=== PATIENT | female | born 1955 | race Caucasian/White ===

== ENCOUNTER 2019-06-08 16:42 | Outpatient (CLI) | payer OTHER, SELFPAY ==
--- NOTE | 2019-06-08 | XR_ITS ---
WS: [id number] CERVICAL SPINE 5 VIEWS HISTORY: CERVICAL RADICULOPATHY COMPARISON: 06/30/2018 TECHNIQUE: AP, oblique and lateral radiographs. Lateral in neutral, flexion and extension. Mild S-shaped curvature cervical spine similar to the prior study. Lateral masses of C1 and C2 are al igned. Odontoid is intact. Straightening and slight reversal normal cervical lordosis. Taking into co nsideration the osteophytes and degenerative rotation of the vertebral bodies no instability is evide nt. Endplate osteophytes are small from C3 through C7. XR/XR cervical spine 4-5V [id number] IMPRESSION: 1. Straightening reversal normal cervical lordosis. 2. No instability. 3. Multilevel mild spondylosis.
== END 2019-06-08 16:43 | disposition home or self-care (01) ==
LOC: RADOUTREAD 06-11 08:03
PROVIDERS: Family Provider Family Medicine; Visit Provider Family Medicine
DX: M54.12 Radiculopathy, cervical region (principal); M47.892 Other spondylosis, cervical region

== ENCOUNTER 2019-08-09 12:33 | Outpatient (CLI) | payer OTHER, SELFPAY ==
--- NOTE | 2019-08-09 12:46 | CT_ITS ---
WS: [id number] CT ANGIOGRAM CEREBRAL AND CAROTID ARTERIES HISTORY: RT ARM WEAKNESS TECHNIQUE: CT angiogram is performed of the carotid and cerebral arteries. During arterial injection imaging is obtained from the skull vertex to the aortic arch in 1.25 mm imaging. Coronal and sagittal reformats are submitted. Additional multi planar reformats of the carotid and cerebral arteries are submitted, MIP imaging also reviewed. NASCET criteria utilized. All CT scans at [facility] use at least one of these dose optimization techniques: automated exposure control; mA and/or kV ad justment per patient size (includes targeted exams where dose is matched to clinical indication); or iterative reconstruction. CONTRAST: Omnipaque 350; 95 mL IV. DLP: 2350.26 mGy.cm COMPARISON: None available. Carotid Angiogram: Right carotid: Common carotid artery: Arises normally from the innominate artery. No significant plaque or stenosis. Internal carotid artery: Mild narrowing involving the origin of the RIGHT ICA. Stenosis calculated at 32%. Visually the stenosis appears closer to 50%. External carotid artery: Patent. Left carotid: Common carotid artery: Arises from the base of the innominate. No stenosis. Internal carotid artery: No plaque or stenosis. External carotid artery: Patent. Right vertebral artery: Unremarkable. Left vertebral artery: Unremarkable. Arises normally from the subclavian artery. Subclavian arteries: LEFT subclavian is normal. Proximal RIGHT subclavian is normal. Distal to the pr oximal subclavian overlying contrast mixing from the subclavian artery. Upper thorax: Normal. Thyroid gland: LEFT thyroid nodule measures 2.8 x 2.1 cm and extends substernal. Osseous structures: Mild osteophytic ridging of the cervical spine. No focal disc herniations or sign ificant stenosis is identified. Very mild narrowing of the RIGHT foramen at C5-6. CEREBRAL ANGIOGRAM: Intracranial vertebral arteries: Normal with no significant atherosclerosis. Basilar artery: No significant stenosis or occlusion. No aneurysm. Intracranial Internal carotid arteries: Patent with mild atherosclerotic plaque. Middle cerebral arteries: Normal. Anterior cerebral arteries and ACOM: Normal. Posterior cerebral arteries and PCOM's: Posterior cerebral arteries are normal. Small caliber LEFT P- comm. RIGHT is dominant. Dural venous sinuses are normally enhancing. Mastoid air cells: Normal. Paranasal sinuses: Mucoperiosteal thickening LEFT maxillary sinus. Otherwise clear. Calvarium: Normal. CT/CT angio headneck* [id number] IMPRESSION: 1. Focal stenosis of 50% involving the origin of the RIGHT ICA. 2. Mild atherosclerosis intracranial carotid arteries. 3. Bovine arch. 4. Substernal LEFT thyroid nodule measures 2.8 x 2.1 cm. Probably thyroid goit er. Consider follow-up ultrasound evaluation.
[2019-08-09 13:36] LABS: Blood Urea Nitrogen 20 mg/dL (8-23); Glomerular Filtration Rate 56.2 mL/min (90-130)
[2019-08-09] MEDS: iohexol 350 mg/mL 100 mL Btl IV (14:01)
== END 2019-08-09 12:34 | disposition home or self-care (01) ==
LOC: RAD 12:40
PROVIDERS: Family Provider Family Medicine; PCP Family Medicine; Visit Provider Family Medicine
DX: R29.898 Other symptoms and signs involving the musculoskeletal system (principal); E04.1 Nontoxic single thyroid nodule; I65.21 Occlusion and stenosis of right carotid artery; R20.0 Anesthesia of skin
CPT/HCPCS: 36415; 70496; 70498; 82565; 84520

== ENCOUNTER 2019-08-14 12:43 | Outpatient (CLI) | payer OTHER, SELFPAY ==
--- NOTE | 2019-08-14 | MR_ITS ---
WS: [id number] MRI HEAD WITH CONTRAST TECHNIQUE: Sagittal T1, T2 axial, T2 axial FLAIR, axial susceptibility weighted imaging, axial diffus ion weighted images, and coronal T2 images were obtained. Pre and post-T1 axial and post T1 coronal i mages. ADC and FSPGR images. CLINICAL INFORMATION: RT ARM WEAKNESS COMPARISON: MRI 017 FINDINGS: No evidence of restricted diffusion to suggest acute ischemia. Ventricular system and basal cisterns are patent. Moderate patchy supratentorial white matter changes most consistent with a small vessel d isease in a patient this age. This is not significantly changed since 2017. Moderate parenchymal volu me loss. Normal posterior fossa. Normal vascular flow voids at the skull base. No extra-axial fluid collections. No evidence of mass or mass effect. Paranasal sinuses and mastoid a ir cells are well aerated. No hemosiderin on susceptibly weighted images. No abnormal intracranial enhancement. Normal optic chiasm and pituitary infundibulum. Normal visualiz ed dural venous sinuses. MR/MR head wo/w con [id number] IMPRESSION: 1. No evidence of restricted diffusion to suggest acute ischemia. 2. Moderate supratentorial white matter changes most consistent with small ves angie disease in a patient this age. This is not significantly changed. Moderate parenchymal volume loss. 3. No hemosiderin on the susceptibly weighted images. 4. No abnormal intracranial enhancement. 5. No other significant findings.
--- NOTE | 2019-08-14 | USCV_ITS ---
Nancy James Age: 64 Gender: F : 1955 Exam Date: 08/14/2019 13:29 Ordering Phys: Rory Kinney MD Technologist: Zeferino Dinh [place] [facility] [place]: BP: 120 / 80 HR: 64 Rhythm: Sinus Technical Quality: Adequate MEASUREMENTS (Male / Female) Normal Values 2D ECHO LV Diastolic Diameter PLAX 3.3 cm 4.2 - 5.9 / 3.9 - 5.3 cm LV Systolic Diameter PLAX 2.1 cm IVS Diastolic Thickness 0.8 cm 0.6 - 1.0 / 0.6 - 0.9 cm IVS Systolic Thickness 1.5 cm LVPW Diastolic Thickness 1.0 cm 0.6 - 1.0 / 0.6 - 0.9 cm LVPW Systolic Thickness 1.2 cm LVOT Diameter 2.1 cm LV Ejection Fraction 2D Teich 67.8 % LV Ejection Fraction MOD 2C 67.7 % LV Ejection Fraction 2C AL 68.3 % LA Diameter 3.5 cm LA Width 2.9 cm LA Height 5.2 cm RA Width 3.4 cm RA Height 4.1 cm M-MODE LV Diastolic Diameter MM 4.6 cm 4.2 - 5.9 / 3.9 - 5.3 cm LV Systolic Diameter MM 3.1 cm LV Ejection Fraction MM Teich 60.2 % IVS Diastolic Thickness MM 1.0 cm 0.6 - 1.0 / 0.6 - 0.9 cm IVS Systolic Thickness MM 1.4 cm LVPW Diastolic Thickness MM 1.1 cm 0.6 - 1.0 / 0.6 - 0.9 cm LVPW Systolic Thickness MM 1.9 cm RV Diastolic Diameter MM 1.6 cm Aortic Annulus Diameter 2.8 cm LA Ao Ratio MM 1.2 MV E Point Septal Separation 1.1 cm DOPPLER AV Peak Velocity 239.0 cm/s LVOT Peak Velocity 120.0 cm/s AV Area Cont Eq vti 1.7 cm squared AV Area Cont Eq pk 1.8 cm squared MV Area PHT 5.0 cm squared Mitral E to A Ratio 0.8 MV E' Velocity 10.0 cm/s Mitral E to MV E' Ratio 8.7 Mitral E to LV E' Lateral Ratio 8.5 Mitral E to LV E' Septal Ratio 9.0 TR Peak Velocity 158.0 cm/s TR Peak Gradient 10.0 mmHg TV Peak E Velocity 77.0 cm/s Right Atrial Pressure 3.0 mmHg Pulmonary Artery Systolic Pressu 13.0 mmHg FINDINGS Left Ventricle Normal left ventricular size and systolic function, EF 58 %. No regional wall motion abnormalities.Grade I/IV diastolic dysfunction (abnormal relaxation filling pattern), normal to mildly elevated filling pressures. Right Ventricle Normal right ventricular size and systolic function. Right Atrium The right atrium is normal in size. Left Atrium The left atrium is normal in size. Mitral Valve Structurally normal mitral valve without significant stenosis or prolapse. There is no mitral regurgitation. Aortic Valve Thickened aortic valve. Aortic valve sclerosis. Tricuspid Valve Structurally normal tricuspid valve without significant stenosis or regurgitation. Pulmonary artery systolic pressure is normal. Pulmonic Valve Structurally normal pulmonic valve without significant stenosis. There is no pulmonic regurgitation. Pericardium Normal pericardium without effusion. Aorta Normal aortic annulus size. CONCLUSIONS Normal left ventricular size and systolic function, EF 58 %. No regional wall motion abnormalities.Grade I/IV diastolic dysfunction (abnormal relaxation filling pattern), normal to mildly elevated filling pressures. Features of aortic valve sclerosis There is no pericardial effusion. There are no intracardiac masses. There are no prior echocardiogram studies to compare. Dr Karyn Ontiveros MD FACC (Electronically Signed) Final Date: 14 August 2019 17:20 S
== END 2019-08-14 12:44 | disposition home or self-care (01) ==
PROVIDERS: Family Provider Family Medicine; PCP Family Medicine; Visit Provider Family Medicine
DX: I65.29 Occlusion and stenosis of unspecified carotid artery (principal); R53.1 Weakness
CPT/HCPCS: 70553; A9579; C8929

== ENCOUNTER 2019-10-24 13:08 | Outpatient (CLI) | payer OTHER, SELFPAY ==
--- NOTE | 2019-10-24 13:11 | MR_ITS ---
WS: [id number] MRI CERVICAL SPINE NONCONTRAST TECHNIQUE: Sagittal T1, T2 and STIR imaging. Axial T2, gradient, and fiesta imaging. CLINICAL INFORMATION: CERVICAL RADICULOPATHY AT C7 COMPARISON: MRI cervical August 27, 2015 FINDINGS: Straightening of the normal cervical lordosis. Cord signal is normal. No high-grade central canal kathleen rowing. Alignment is unchanged since 2016 C2-C3: Normal. C3-C4: Mild disc bulging and osteophytic ridging. Moderate left and no significant right foraminal na rrowing. Mild facet arthropathy. Spinal canal is patent. C4-C5: Disc osteophyte complex with endplate ridging. Mild central canal stenosis. Moderate left and no significant right foraminal narrowing. Mild facet arthropathy. C5-C6: Right pericentral disc osteophyte complex. Mild central canal stenosis. Mild right and no sign ificant left foraminal narrowing. Mild facet arthropathy. C6-C7: Tiny central disc protrusion. Mild central canal stenosis. Mild left and no significant right foraminal narrowing. C7-T1: Mild bilateral foraminal narrowing. Spinal canal is patent. Visualized brain stem structures: Normal. Prevertebral soft tissues: Normal. MR/MR cervical spin wo con* [id number] IMPRESSION: 1. Straightening of the normal cervical lordosis. No high-grade central canal narrowing. Cord signal is normal. 2. Mild central canal stenosis due to disc osteophyte complexes at C3-C4, C4-C 5 and C5-C6. 3. Mild to moderate bony foraminal narrowing worse at left C3-C4, left C4-C5, left C6-7. 4. Overall no significant interval changes since August 27, 2015
--- NOTE | 2019-10-24 13:13 | MR_ITS ---
WS: [id number] MRI RIGHT SHOULDER NONCONTRAST TECHNIQUE: Sagittal T2, coronal T1, T2 and proton density imaging. Axial gradient PDE imaging. CLINICAL INFORMATION: RIGHT ROTATOR CUFF SYNDROME FINDINGS: Moderate hypertrophic changes AC joint with mild edema. Mild downsloping of the acromion. Chronic thi nning of the supraspinatus with mild tendinopathy. Infraspinatus is normal in appearance. Normal sammie s minor and subscapularis. No full-thickness rotator cuff tears. Normal biceps tendon in the bicipital groove. Distal subscapularis tendon is normal in appearance. Mi ld degenerative fraying of the glenoid labrum which appears grossly intact. T2 hyperintensity with th ickening and partial intrasubstance tear involving the intra-articular biceps tendon. Biceps labral a nchor appears intact. MR/MR shoulder RT wo con* [id number] IMPRESSION: 1. Moderate hypertrophic changes AC joint with mild edema. 2. Rotator cuff is intact. Mild tendinopathy in the distal supraspinatus. 3. Edema with partial intrasubstance tear involving the intra-articular biceps tendon. Distal biceps tendon is intact in the bicipital groove. 4. Biceps labral anchor appears intact.
== END 2019-10-24 13:09 | disposition home or self-care (01) ==
LOC: RADWPI 13:10
PROVIDERS: Family Provider Family Medicine; PCP Family Medicine; Visit Provider Family Medicine
DX: M75.101 Unspecified rotator cuff tear or rupture of right shoulder, not specified as traumatic (principal); M54.12 Radiculopathy, cervical region; R60.9 Edema, unspecified
CPT/HCPCS: 72141; 73221

== ENCOUNTER 2022-08-16 06:00 | Outpatient (RCR) | payer MEDICARE, SELFPAY | END 2022-09-05 23:59 | disposition home or self-care (01) | LOC: SPT 06:00 | PROVIDERS: Visit Provider Family Medicine | DX: H81.11 Benign paroxysmal vertigo, right ear (principal) | CPT/HCPCS: 95992; 97161 ==

== ENCOUNTER 2023-03-15 07:12 | Emergency (ER) | payer MEDICARE, SELFPAY ==
[2023-03-15] VITALS (31 sets, daily range): BP systolic 130–178; BP diastolic 58–79; PULSE 49–65; RESP 2–20; TEMP 36.4; O2SAT 94–98; BMI 25.3
--- NOTE | 2023-03-15 07:22 | ECG_ITS ---
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 Measurements Intervals [place] Rate: 57 P: 65 UT: 126 QRS: 26 QRSD: 104 T: 13 QT: 413 QTc: 405 Interpretive Statements SINUS BRADYCARDIA WITH OCCASIONAL VENTRICULAR PREMATURE COMPLEXES No previous ECG available for comparison Electronically Signed On 03-15-2023 10:43:54 ASSISTANT GENERAL MANAGER by Wilner Downing M.D. [id number] f
--- NOTE | 2023-03-15 07:39 | W.ED.CHESTPA ---
HPI - Chest Pain General: Chief Complaint: Chest Pain Stated Complaint: high bp, dizzy Time Seen by Provider: 03/15/23 07:20 Source: patient Mode of arrival: ambulatory History of Present Illness: 67-year-old female presents emergency room complaining of chest discomfort and dizziness. She awoke from sleep had a sensation she was falling states she felt dizzy blood pressure was 157/97 she took her regular morning medications amlodipine and Lopressor. Her blood pressure still mildly elevated on arrival here she does not have any chest discomfort but she is having dizziness. No known history of coronary artery disease she is diabetic and hypertensive. She thinks she may have had a stress test sometime nearly 40 years ago. MD complaint: chest pain Onset (ago): hour(s) Timing of current episode: episodic Prior episodes: Yes Onset: during rest Pain location: substernal Pain radiation: none Quality: aching and heaviness Relieving factors: nothing Exacerbating factors: nothing Associated symptoms: Deny abdominal pain, diaphoresis, dyspnea, fever(s), leg edema, nausea, palpitations, sense of impending doom, syncope or vomiting Treatment prior to arrival: none Review of Systems Const: Denies: fever(s), chills or diaphoresis Card: Reports: chest pain; Denies: palpitations, irregular heart rhythm, edema or syncope Resp: Denies: dyspnea GI: Denies: abdominal pain, nausea or vomiting : Denies: dysuria, urinary frequency or urinary urgency Musc: Denies: neck pain or back pain Skin/Breast: Denies: rash Neuro: Reports: dizziness [facility] ED PFSH: Social History (Updated 03/15/23 @ 07:40 by Arash Gonzalez DO) Smoking and tobacco/nicotine status: current every day tobacco/nicotine user cigarettes Physical Exam Const: COMMON NORMALS: no acute distress GENERAL APPEARANCE: cooperative and comfortable ORIENTATION/CONSCIOUSNESS: Yes awake, Yes oriented to person, Yes oriented to place and Yes oriented to time HENMT: COMMON NORMALS: normocephalic, atraumatic and hearing grossly normal bilaterally HEAD & SCALP: normocephalic and atraumatic Resp: COMMON NORMALS: normal respiratory effort, No retractions, No use of accessory muscles and clear to auscultation bilaterally AUSCULTATION: clear to auscultation bilaterally Cardio: COMMON NORMALS: regular rate, regular rhythm and No murmurs present (Cardio) RATE: regular rate RHYTHM: regular rhythm GI: COMMON NORMALS: Soft to palpation and No hepatosplenomegaly present AUSCULTATION: Yes normoactive bowel sounds PALPATION: Yes Soft to palpation, No Tenderness to palpation present (GI), No Guarding due to palpation present (GI) and Yes No hepatosplenomegaly present Extremity: COMMON NORMALS: normal to inspection, capillary refill normal, no clubbing, cyanosis or edema, no calf tenderness and no pedal edema Neuro: SENSORIUM/ORIENTATION: Yes oriented to person, Yes oriented to place and Yes oriented to time Skin: COMMON NORMALS: no rashes or lesions noted GENERAL SKIN EXAM: no rashes or lesions noted Course Vital Signs: Vital signs: Vital Signs Temperature 97.6 F 03/15/23 07:18 Pulse Rate 60 03/15/23 11:05 Respiratory Rate 16 03/15/23 11:05 Blood Pressure 133/71 03/15/23 11:05 Pulse Oximetry 96 03/15/23 11:05 Oxygen Delivery Me thod Room Air 03/15/23 09:21 MDM - Chest Pain Medical Decision Making Patient blood pressure elevated some mild chest discomfort cardiac enzymes negative. She has had some dizziness movement head continues Dramamine for this. We will set her up for an outpatient Lexiscan sestamibi stress test. Recheck for any worsening problems. . Reviewing chart she has seen her primary care doctor and been referred for vestibular rehab in the past the dizziness has been an ongoing issue. Medical Records I reviewed the patient's medical records. Lab Data I reviewed the patient's lab results. 03/15/23 07:30 03/15/23 08:03 Laboratory Results WBC 7.91 10^3/uL (3.29-11.43) 03/15/23 07:30 RBC 5.35 10^6/uL (3.85-5.65) 03/15/23 07:30 Hgb 16.30 g/dL (11.27-16.99) 03/15/23 07:30 Hct 49.1 % (36-47) H 03/15/23 07:30 MCV 91.8 fl (85-98) 03/15/23 07:30 MCH 30.5 pg (27-33) 03/15/23 07:30 MCHC 33.2 g/dL (30-55) 03/15/23 07:30 RDW 12.6 % (12.1-15.1) 03/15/23 07:30 Plt Count 266 10^3/cmm (157-399) 03/15/23 07:30 MPV 11.7 fL (7.4-10.4) H 03/15/23 07:30 Neut % (Auto) 54.6 % 03/15/23 07:30 Lymph % (Auto) 33.0 % 03/15/23 07:30 Teller % (Auto) 7.6 % 03/15/23 07:30 Eos % (Auto) 3.4 % 03/15/23 07:30 Baso % (Auto) 1.1 % 03/15/23 07:30 Neut # (Auto) 4.32 10^3/uL (1.8-7.7) 03/15/23 07:30 Lymph # (Auto) 2.6 10^3/uL (0.8-4.8) 03/15/23 07:30 Teller # (Auto) 0.6 10^3/uL (0.2-0.9) 03/15/23 07:30 Eos # (Auto) 0.3 10^3/uL (0.0-0.8) 03/15/23 07:30 Baso # (Auto) 0.1 10^3/uL (0.0-0.1) 03/15/23 07:30 Nucleated RBC % (auto) 0 % 03/15/23 07:30 Nucleated RBCs # 0.0 /100WBC 03/15/23 07:30 Sodium 138 mmol/L (136-145) 03/15/23 08:03 Potassium 4.0 mmol/L (3.5-5.1) 03/15/23 08:03 Chloride 103 mmol/L (98-107) 03/15/23 08:03 Carbon Dioxide 23 mmol/L (22-29) 03/15/23 08:03 Anion Gap 16.0 (5-19) 03/15/23 08:03 BUN 17 mg/dL (8-23) 03/15/23 08:03 Creatinine 0.9 mg/dL (0.5-0.9) 03/15/23 08:03 GFR Calculation 62.8 mL/min (90-130) L 03/15/23 08:03 Glucose 132 mg/dL (65-115) H 03/15/23 08:03 Calculated Osmolality 289 mOsm/kg (285-295) 03/15/23 08:03 Calcium 9.3 mg/dL (8.5-10.5) 03/15/23 08:03 Total Bilirubin 0.2 mg/dL (0.15-1.2) 03/15/23 08:03 AST 13 U/L (0-32) 03/15/23 08:03 ALT 15 U/L (0-33) 03/15/23 08:03 Alkaline Phosphatase 32 U/L (35-105) L 03/15/23 08:03 Troponin T Baseline < 6 ng/L (0-10) 03/15/23 08:03 Troponin T 120 Minute 6.0 ng/L (0-10) 03/15/23 10:00 Delta Troponin T 0.43618 ABS# (0-10) 03/15/23 10:00 Total Protein 7.0 g/dL (6.6-8.7) 03/15/23 08:03 Albumin 4.2 g/dL (3.5-5.2) 03/15/23 08:03 Globulin 2.8 g/dL (1.3-4.6) 03/15/23 08:03 All radiology interpretation(s) finalized by discharge Discharge Plan Discharge Patient Disposition: Home Clinical Impression: Atypical chest pain, GERD (gastroesophageal reflux disease) Prescriptions: New Protonix 40 mg tablet,delayed release (DR/EC) 40 mg PO DAILY 28 Days Qty: 30 0RF No Action fenofibrate nanocrystallized [Tricor] 145 mg tablet 145 mg PO QAM triamterene-hydrochlorothiazid 37.5-25 mg tablet 1 tab PO QAM amlodipine 5 mg tablet 5 mg PO QAM aspirin 81 mg tablet,delayed release (DR/EC) 81 mg PO QAM zolpidem [Ambien] 5 mg tablet 5 mg PO BEDTIME PRN (Reason: Sleep) potassium chloride 10 mEq tablet extended release 30 meq PO QAM Vitamin C 500 mg Tablet 500 mg PO QAM albuterol sulfate 90 mcg/actuation Hfa Aerosol Inhaler 2 puff INHALATION QID PRN (Reason: Shortness Of Breath) metoprolol tartrate 25 mg tablet 25 mg PO QAM Vitamin D3 25 mcg (1,000 unit) Tablet 1,000 unit PO QAM [place] Blood Sugar Support 1 tab PO QAM Colon Cleanse 1 tab PO QAM Discharge Orders: Discharge ED (Routine); Ordered 03/15/23 Ordered By: Arash Gonzalez Discharge Diet: Usual diet Discharge Activity: Increase activity as tolerated Patient Instructions: Opioid Safety, Pain Management Activity Restrictions/Additional Instructions: Thank you for choosing [facility] for your healthcare needs today. Please realize this is an emergency room and that we are providing you with a medical screening exam and this may not be complete and all inclusive of all the testing and or work up that you may need to determine your ailment or severity of your illness. It is very important that you follow up as instructed or that you return to the Emergency Department should you have concerns or if your condition changes or worsens in any way. Suspect your symptoms may have been related to reflux. We do recommend that you have a Lexiscan sestamibi stress test to rule out cardiac as a source of your symptoms. Coding Level of Care Code ED Maintenance Mechanic [employer] for Eliazar Hardin
[2023-03-15 07:40] LABS: Basophils # 0.1 10^3/uL (0.0-0.1); Basophils % 1.1 %; Eosinophils # 0.3 10^3/uL (0.0-0.8); Eosinophils % 3.4 %; Hematocrit 49.1 % (36-47); Lymphocytes # 2.6 10^3/uL (0.8-4.8); Mean Corpuscular HGB Conc 33.2 g/dL (30-55); Mean Corpuscular Hemoglobin 30.5 pg (27-33); Mean Corpuscular Volume 91.8 fl (85-98); Mean Platelet Volume 11.7 fL (7.4-10.4); Monocytes # 0.6 10^3/uL (0.2-0.9); Monocytes % 7.6 %; Neutrophils # 4.32 10^3/uL (1.8-7.7); Neutrophils % 54.6 %; Nucleated Red Blood Cells % 0 %; Platelet Count 266 10^3/cmm (157-399); Red Blood Count 5.35 10^6/uL (3.85-5.65); Red Cell Distribution Width 12.6 % (12.1-15.1); White Blood Count 7.91 10^3/uL (3.29-11.43)
[2023-03-15 08:32] LABS: Alanine Aminotransferase 15 U/L (0-33); Albumin Level 4.2 g/dL (3.5-5.2); Alkaline Phosphatase 32 U/L (35-105); Aspartate Amino Transferase 13 U/L (0-32); Blood Urea Nitrogen 17 mg/dL (8-23); Calcium 9.3 mg/dL (8.5-10.5); Carbon Dioxide 23 mmol/L (22-29); Chloride 103 mmol/L (98-107); Globulin 2.8 g/dL (1.3-4.6); Glomerular Filtration Rate 62.8 mL/min (90-130); Glucose 132 mg/dL (65-115); Osmolality Calculated 289 mOsm/kg (285-295); Sodium 138 mmol/L (136-145); Total Bilirubin 0.2 mg/dL (0.15-1.2)
[2023-03-15 08:35] LABS: Troponin(5th) Baseline < 6 ng/L (0-10)
--- NOTE | 2023-03-15 09:24 | ECG_ITS ---
[facility] Test Date: 2023-03-15 Pat Name: Nancy James Department: Room: Gender: Female Polyethylene Combiner: : 1955 Requested By: Arash Hernandez Order Number: [id number] Benjy MD: Wilner Downing M.D. Measurements Intervals [place] Rate: 47 P: 68 CA: 129 QRS: 40 QRSD: 105 T: 22 QT: 439 QTc: 392 Interpretive Statements SINUS BRADYCARDIA No previous ECG available for comparison Electronically Signed On 03-15-2023 10:45:14 MACHINE PRECISION ETCHER by Wilner Downing M.D. [id number]
--- NOTE | 2023-03-15 09:53 | XR_ITS ---
WS: [id number] Portable AP upright chest, 03/15/2023 Clinical Data: dyspnea/cough Comparison: 2 view chest, 04/18/2020 Findings: No nodules, masses or effusions are seen. The heart is normal. The pulmonary vascularity is not increased. No pneumonia or pneumothorax is seen. The aortic arch and descending thoracic aorta s how mild tortuosity. There is a slight dextroscoliosis of the lower thoracic spine. Monitor leads are on the chest wall. Impression: Atherosclerosis.
[2023-03-15 10:28] LABS: Troponin 5 2HR Delta 0.00001 ABS# (0-10)
== END 2023-03-15 11:10 | disposition home or self-care (01) ==
PROVIDERS: Emergency Provider Family Medicine; PCP Family Medicine
DX: R07.89 Other chest pain (principal); K21.9 Gastro-esophageal reflux disease without esophagitis; Z79.82 Long term (current) use of aspirin; F17.210 Nicotine dependence, cigarettes, uncomplicated
CPT/HCPCS: 36415; 71045; 80053; 84484; 85025; 93005; 99285

== ENCOUNTER 2023-03-17 03:15 | Emergency (ER) | payer MEDICARE, SELFPAY ==
[2023-03-17 03:15] VITALS: BP 177/89; PULSE 70; RESP 12; TEMP 36.5; O2SAT 98; BMI 25.0
--- NOTE | 2023-03-17 03:32 | ECG_ITS ---
[facility] Test Date: 2023-03-17 Pat Name: Nancy James Department: Room: Gender: Female Field Application Engineer: : 1955 Requested By: Stanley Starks Order Number: [id number] Benjy MD: Wilner Downing M.D. Measurements Intervals [place] Rate: 74 P: 71 IA: 116 QRS: 62 QRSD: 99 T: 37 QT: 377 QTc: 420 Interpretive Statements SINUS RHYTHM WITH SHORT IA INTERVAL NONSPECIFIC T-WAVE ABNORMALITY Compared to ECG 03/15/2023 09:24:54 Short IA interval now present T-wave abnormality now present Sinus bradycardia no longer present Electronically Signed On 03-17-2023 11:12:30 APPRENTICE by Wilner Downing M.D. [id number]
[2023-03-17 03:37] LABS: Basophils # 0.1 10^3/uL (0.0-0.1); Basophils % 1.2 %; Eosinophils # 0.3 10^3/uL (0.0-0.8); Eosinophils % 2.5 %; Hematocrit 48.1 % (36-47); Lymphocytes # 4.7 10^3/uL (0.8-4.8); Lymphocytes % 39.1 %; Mean Corpuscular HGB Conc 32.8 g/dL (30-55); Mean Corpuscular Hemoglobin 30.4 pg (27-33); Mean Corpuscular Volume 92.5 fl (85-98); Mean Platelet Volume 12.6 fL (7.4-10.4); Monocytes # 0.9 10^3/uL (0.2-0.9); Monocytes % 7.6 %; Neutrophils # 5.87 10^3/uL (1.8-7.7); Neutrophils % 49.3 %; Nucleated Red Blood Cells % 0 %; Platelet Count 260 10^3/cmm (157-399); Red Cell Distribution Width 12.3 % (12.1-15.1)
--- NOTE | 2023-03-17 03:39 | ED_ITS ---
HPI - General Adult General: Chief complaint: General Medical Stated complaint: hypertension Time Seen by Provider: 03/17/23 03:18 History of Present Illness: Patient presents to the ER with complaints of hypertension. Patient also has dizziness but this is chronic for her. Patient states she has taken her medicine and has not missed any doses. Patient presented to the ER a couple days ago with similar complaints and was worked up in a cardiac fashion. Review of Systems General: Reports: 10 or more systems reviewed and unremarkable except in HPI and below PFSH ED PFSH: Social History Smoking and tobacco/nicotine status: current every day tobacco/nicotine user cigarettes Physical Exam Const: COMMON NORMALS: no acute distress, average body habitus, patient oriented x3, no limitations, healthy appearing, alert and well nourished HENMT: COMMON NORMALS: normocephalic, atraumatic, hearing grossly normal bilaterally, external ears normal, Normal external nose present, moist oral mucous membranes and oropharynx normal HEAD & SCALP: normocephalic and atraumatic NOSE: Normal external nose present EXTERNAL EAR: Yes external ears normal Neck/C-Spine: COMMON NORMALS: no JVD Chest: COMMONS NORMALS: normal inspection of the chest and normal palpation of entire chest wall Resp: COMMON NORMALS: normal respiratory effort, No retractions, No use of accessory muscles and clear to auscultation bilaterally AUSCULTATION: clear to auscultation bilaterally Cardio: COMMON NORMALS: no JVD, regular rate, regular rhythm, S1 normal heart sound present, S2 normal heart sound present, No gallops present (Cardio), No clicks present (Cardio), No murmurs present (Cardio) and No rub (Cardio) RATE: regular rate RHYTHM: regular rhythm HEART SOUNDS: S1 normal heart sound present and S2 normal heart sound present GI: COMMON NORMALS: Normal to inspection, nondistended, normoactive bowel sounds present, Soft to palpation, non-tender, No hepatosplenomegaly present and no masses PALPATION: Yes Soft to palpation and Yes No hepatosplenomegaly present Neuro: COMMON NORMALS: patient oriented x3 SENSORIUM/ORIENTATION: Yes alert Course Vital Signs: Vital signs: Vital Signs Temperature 97.7 F 03/17/23 03:15 Pulse Rate 67 03/17/23 05:40 Respiratory Rate 18 03/17/23 05:40 Blood Pressure 154/69 03/17/23 05:40 Pulse Oximetry 95 03/17/23 05:40 Oxygen Delivery Me thod Room Air 03/17/23 03:15 MDM - General Adult Medical Decision Making labs Differential Diagnosis Hypertension Medical Records I reviewed the patient's medical records. Lab Data I reviewed the patient's lab results. 03/17/23 03:17 03/17/23 04:01 Laboratory Results WBC 11.90 10^3/uL (3.29-11.43) H 03/17/23 03:17 RBC 5.20 10^6/uL (3.85-5.65) 03/17/23 03:17 Hgb 15.80 g/dL (11.27-16.99) 03/17/23 03:17 Hct 48.1 % (36-47) H 03/17/23 03:17 MCV 92.5 fl (85-98) 03/17/23 03:17 MCH 30.4 pg (27-33) 03/17/23 03:17 MCHC 32.8 g/dL (30-55) 03/17/23 03:17 RDW 12.3 % (12.1-15.1) 03/17/23 03:17 Plt Count 260 10^3/cmm (157-399) 03/17/23 03:17 MPV 12.6 fL (7.4-10.4) H 03/17/23 03:17 Neut % (Auto) 49.3 % 03/17/23 03:17 Lymph % (Auto) 39.1 % 03/17/23 03:17 [place] % (Auto) 7.6 % 03/17/23 03:17 Eos % (Auto) 2.5 % 03/17/23 03:17 Baso % (Auto) 1.2 % 03/17/23 03:17 Neut # (Auto) 5.87 10^3/uL (1.8-7.7) 03/17/23 03:17 Lymph # (Auto) 4.7 10^3/uL (0.8-4.8) 03/17/23 03:17 [place] # (Auto) 0.9 10^3/uL (0.2-0.9) 03/17/23 03:17 Eos # (Auto) 0.3 10^3/uL (0.0-0.8) 03/17/23 03:17 Baso # (Auto) 0.1 10^3/uL (0.0-0.1) 03/17/23 03:17 Nucleated RBC % (auto) 0 % 03/17/23 03:17 Nucleated RBCs # 0.0 /100WBC 03/17/23 03:17 Sodium 140 mmol/L (136-145) 03/17/23 04:01 Potassium 3.8 mmol/L (3.5-5.1) 03/17/23 04:01 Chloride 102 mmol/L (98-107) 03/17/23 04:01 Carbon Dioxide 25 mmol/L (22-29) 03/17/23 04:01 Anion Gap 16.8 (5-19) 03/17/23 04:01 BUN 19 mg/dL (8-23) 03/17/23 04:01 Creatinine 1.0 mg/dL (0.5-0.9) H 03/17/23 04:01 GFR Calculation 55.6 mL/min (90-130) L 03/17/23 04:01 Glucose 143 mg/dL (65-115) H 03/17/23 04:01 Calculated Osmolality 295 mOsm/kg (285-295) 03/17/23 04:01 Calcium 10.1 mg/dL (8.5-10.5) 03/17/23 04:01 Total Bilirubin 0.2 mg/dL (0.15-1.2) 03/17/23 04:01 AST 15 U/L (0-32) 03/17/23 04:01 ALT 17 U/L (0-33) 03/17/23 04:01 Alkaline Phosphatase 35 U/L (35-105) 03/17/23 04:01 Troponin T Baseline < 6 ng/L (0-10) 03/17/23 03:17 Troponin T 120 Minute < 6.0 ng/L (0-10) 03/17/23 05:17 Delta Troponin T 0 ABS# (0-10) 03/17/23 05:17 Total Protein 7.1 g/dL (6.6-8.7) 03/17/23 04:01 Albumin 4.2 g/dL (3.5-5.2) 03/17/23 04:01 Globulin 2.9 g/dL (1.3-4.6) 03/17/23 04:01 No radiology studies performed this visit EKG Data EKG 1: I personally reviewed and interpreted this EKG as follows: EKG interpretation date: 03/17/23 EKG interpretation time: 04:07 Prior EKG tracings: available for review Discharge Plan Discharge Patient Disposition: Home Clinical Impression: Atypical chest pain, Vertigo Condition: Stable Prescriptions: No Action fenofibrate nanocrystallized [Tricor] 145 mg tablet 145 mg PO QAM triamterene-hydrochlorothiazid 37.5-25 mg tablet 1 tab PO QAM amlodipine 5 mg tablet 5 mg PO QAM aspirin 81 mg tablet,delayed release (DR/EC) 81 mg PO QAM zolpidem [Ambien] 5 mg tablet 5 mg PO BEDTIME PRN (Reason: Sleep) potassium chloride 10 mEq tablet extended release 30 meq PO QAM Vitamin C 500 mg Tablet 500 mg PO QAM albuterol sulfate 90 mcg/actuation Hfa Aerosol Inhaler 2 puff INHALATION QID PRN (Reason: Shortness Of Breath) metoprolol tartrate 25 mg tablet 25 mg PO QAM Vitamin D3 25 mcg (1,000 unit) Tablet 1,000 unit PO QAM [place] Blood Sugar Support 1 tab PO QAM Colon Cleanse 1 tab PO QAM Protonix 40 mg tablet,delayed release (DR/EC) 40 mg PO DAILY 28 Days Qty: 30 0RF Discharge Orders: Discharge ED (Routine); Ordered 03/17/23 Ordered By: Stanley Starks Referrals: Rory Kinney MD [Primary Care Provider] - 1 week Patient Instructions: Chest Pain - Noncardiac, Vertigo Activity Restrictions/Additional Instructions: with your pcp in 7 days for furhter eval and testing Coding Level of Care Code ED Suppression Crew Leader for Chg Fwirene
[2023-03-17] MEDS: ondansetron 2 mg/ML SDV 2 mL 4 MG IVP (03:49)
[2023-03-17] MEDS: hyDRALAzine 20 mg/mL INJ 1 mL IVP (03:49)
[2023-03-17 03:51] LABS: Troponin(5th) Baseline < 6 ng/L (0-10)
[2023-03-17 04:19] VITALS: BP 151/74; PULSE 75; RESP 16; O2SAT 98
[2023-03-17 04:26] LABS: Alanine Aminotransferase 17 U/L (0-33); Albumin Level 4.2 g/dL (3.5-5.2); Alkaline Phosphatase 35 U/L (35-105); Anion Gap 16.8 (5-19); Aspartate Amino Transferase 15 U/L (0-32); Blood Urea Nitrogen 19 mg/dL (8-23); Calcium 10.1 mg/dL (8.5-10.5); Carbon Dioxide 25 mmol/L (22-29); Chloride 102 mmol/L (98-107); Globulin 2.9 g/dL (1.3-4.6); Glomerular Filtration Rate 55.6 mL/min (90-130); Glucose 143 mg/dL (65-115); Osmolality Calculated 295 mOsm/kg (285-295); Potassium 3.8 mmol/L (3.5-5.1); Sodium 140 mmol/L (136-145); Total Bilirubin 0.2 mg/dL (0.15-1.2); Total Protein 7.1 g/dL (6.6-8.7)
[2023-03-17 04:27] LABS: Creatinine Clr Calc Pharmacy 50.4889
[2023-03-17] MEDS: ketorolac 30 mg/mL INJ IVP (04:46)
[2023-03-17 04:51] VITALS: BP 149/63; PULSE 73; RESP 16; O2SAT 95
[2023-03-17] MEDS: meclizine 25 mg tablet 50 MG PO (04:56)
[2023-03-17 05:25] VITALS: BP 140/69; PULSE 72; RESP 16; O2SAT 96
--- NOTE | 2023-03-17 05:32 | ECG_ITS ---
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 Measurements Intervals [place] Rate: 74 P: 71 [place]: 116 QRS: 62 QRSD: 99 T: 37 QT: 377 QTc: 420 Interpretive Statements SINUS RHYTHM WITH SHORT [place] INTERVAL NONSPECIFIC T-WAVE ABNORMALITY Compared to ECG 03/15/2023 09:24:54 Short [place] interval now present T-wave abnormality now present Sinus bradycardia no longer present Electronically Signed On 03-17-2023 11:13:00 METERMAN by Wilner Downing M.D. [id number]
[2023-03-17 05:40] VITALS: BP 154/69; PULSE 67; RESP 18; O2SAT 95
[2023-03-17 05:41] LABS: Troponin 5 2HR < 6.0 ng/L (0-10); Troponin 5 2HR Delta 0 ABS# (0-10)
[2023-03-17] MEDS: metoclopramide 5 mg/mL SDV 2 mL 10 MG IVP (05:58)
[2023-03-17 06:18] VITALS: BP 140/89; PULSE 67; RESP 18; TEMP 36.5; O2SAT 95
== END 2023-03-17 06:19 | disposition home or self-care (01) ==
PROVIDERS: Emergency Provider Emergency Medicine; PCP Family Medicine
DX: R07.89 Other chest pain (principal); R42 Dizziness and giddiness; Z79.82 Long term (current) use of aspirin; F17.210 Nicotine dependence, cigarettes, uncomplicated
CPT/HCPCS: 80053; 84484; 85025; 93005; 96374; 96375; 99285; J0360; J1885; J2405; J2765; J8597

== ENCOUNTER 2023-04-06 09:45 | Outpatient (CLI) | payer MEDICARE, SELFPAY ==
[2023-04-06 09:50] VITALS: BMI 24.5
--- NOTE | 2023-04-06 09:51 | ECG_ITS ---
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 Interpretive Statements NAME OF STUDY: TREADMILL STRESS TEST INDICATION: Atypical Chest Pain Baseline blood pressure of 143/76 mm Hg, heart rate of 68 beats per minute and oxygen saturation of 97%. EKG showed sinus rhythm, normal axis with isolated PVCs. Nonspecific ST-T wave abnormality. ??? The patient exercised for 6 minutes and 58 seconds on a modified Tio protocol. Patient attained a maximum heart rate of 130 beats per minute(84% of the maximum predicted heart rate) with a blood pressure at the peak exercise of 210/79 mm Hg and oxygen saturation 96%. The EKG at the peak exercise revealed sinus tachycardia with frequent isolated PVCs during exercise. Half millimeter to 1 mm horizontal to upsloping ST depression in lead II, 3, aVF V4 to V6. Patient did not have any chest pain or any significant arrhythmis with the exercise. The study was terminated due to maximal effort. During the recovery phase, there were no new changes. ??? Blood pressure at the end of the recovery phase was 138/75 mm Hg with a heart rate of 83 beats per minute and oxygen saturation of 98%. ??? CONCLUSION: 1. Equivocal EKG response to treadmill exercise with half to 1 mm horizontal to upsloping ST depression in inferolateral leads. 2. No exercise-induced chest pain. Frequent isolated PVCs before during and after exercise was noted. 3. Good exercise tolerance, attained a maximum of 10.2 METs. 4. Baseline hypertension with hypertensive response to exercise. Electronically Signed On 04-11-2023 12:14:31 PAPERBOARD BOX MAKER by Aisha Hunt M.D. [id number]
[2023-04-06 11:03] VITALS: BP 138/75; PULSE 83
== END 2023-04-06 09:46 | disposition home or self-care (01) ==
LOC: CDL 09:46
PROVIDERS: PCP Family Medicine; Visit Provider Family Medicine
DX: R07.89 Other chest pain (principal); I49.3 Ventricular premature depolarization; I10 Essential (primary) hypertension
CPT/HCPCS: 93017

== ENCOUNTER → 2024-04-24 12:05 | Outpatient (BNVA) | payer MEDICARE, SELFPAY | PROVIDERS: PCP Family Medicine; Visit Provider Internal Medicine Cardiovascular Disease | DX: I25.10 Atherosclerotic heart disease of native coronary artery without angina pectoris (principal); I47.10 Supraventricular tachycardia, unspecified; R01.1 Cardiac murmur, unspecified; R55 Syncope and collapse; E78.1 Pure hyperglyceridemia; R07.89 Other chest pain; Z72.0 Tobacco use; I10 Essential (primary) hypertension | CPT/HCPCS: 99214 ==

== ENCOUNTER 2024-05-15 10:50 | Outpatient (CLI) | payer MEDICARE, SELFPAY ==
--- NOTE | 2024-05-15 11:15 | USCV_ITS ---
Nancy James Age: 69 Gender: F : 1955 Exam Date: 05/15/2024 11:20 Ordering Phys: Shonda Sanchez MD ([email or web address]) Technologist: CT Exam Location: [facility] – [place] Indication: BP: 156 / 80 HR: 51 Rhythm: Sinus Technical Quality: Adequate MEASUREMENTS (Male / Female) Normal Values 2D ECHO LVOT Diameter 2.1 cm LV Ejection Fraction MOD 4C 71.5 % LV Ejection Fraction MOD 2C 61.4 % LV Ejection Fraction 2C AL 64.1 % LA Diameter 3.2 cm RA Systolic Volume 4C AL 27.3 ml RA Systolic Volume 4C MOD 26.4 ml Aorta at Sinotubular Diameter 1.7 cm M-MODE LA Ao Ratio MM 1.1 AV Cusp Separation MM 1.3 cm DOPPLER AV Peak Velocity 262.0 cm/s LVOT Peak Velocity 120.0 cm/s AV Area Cont Eq vti 1.5 cm squared AV Area Cont Eq pk 1.5 cm squared MV Peak Velocity 105.0 cm/s MV Area PHT 3.8 cm squared Mitral E to A Ratio 1.0 TR Peak Velocity 261.0 cm/s TR Peak Gradient 27.2 mmHg TR Mean Velocity 202.0 cm/s TR Mean Gradient 17.8 mmHg TR Velocity Time Integral 71.2 cm TV Peak E Velocity 58.0 cm/s PV Peak Velocity 91.0 cm/s FINDINGS Left Ventricle Left ventricle is normal in size. LV systolic function is normal with EF of 55 to 60%. No regional wall motion abnormalities are seen. Right Ventricle Normal in size and function Right Atrium Normal in size Left Atrium Normal in size Mitral Valve Structurally normal mitral valve. Mild mitral regurgitation. Aortic Valve Aortic valve is thickened. Mild to moderate aortic stenosis with aortic valve area of 1.5 cm squared and mean gradient of 15 mmHg. Tricuspid Valve Insufficient TR jet to evaluate RVSP. Pulmonic Valve Not well visualized Pericardium Normal Aorta Normal in size IVC Not well visualized CONCLUSIONS LV systolic function is normal with EF of 55-60% Mild mitral regurgitation Mild to moderate aortic stenosis Compared to prior echocardiogram from 2019, aortic stenosis has progressed significantly. Wilner Downing MD (Electronically Signed) Final Date: 18 May 2024 12:21 S
== END 2024-05-15 10:51 | disposition home or self-care (01) ==
LOC: RAD 10:53
PROVIDERS: PCP Family Medicine; Visit Provider Internal Medicine Cardiovascular Disease
DX: I35.2 Nonrheumatic aortic (valve) stenosis with insufficiency (principal)
CPT/HCPCS: 93306

== ENCOUNTER 2024-05-24 13:00 | Outpatient (CLI) | payer MEDICARE, SELFPAY ==
--- NOTE | 2024-05-24 | ECG_ITS ---
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 Baseline heart rate was 74 beats per minute. Baseline blood pressure was 170/59 millimeters of mercury. Target heart rate was 153 beats per minute. Maximum heart rate achieved was 133, which was 86%of the target heart rate. Maximum blood pressure was 204/91 millimeters of mercury. Total exercise time was 6 minutes 31 seconds. Maximum METs achieved was 10.2, maximum VO2 was 35.7. The reason for ending the test was maximum effort achieved. The patient complained of shortness of breath during the stress test, which then resolved at the end of the test. ELECTROCARDIOGRAM: BASELINE: Showed sinus rhythm, normal axis, no significant ST-T changes at the baseline noted. EXERCISE: At the peak exercise level, frequent PVCs were noted, no significant ST-T changes suggestive of ischemia noted. RECOVERY: During the recovery period, heart rate dropped appropriately. No significant ST-T changes in the recovery suggestive of ischemia noted. PVCs improved after the first minute of recovery CONCLUSION: 1. Exercise capacity good. 2. Heart rate response was appropriate. 3. Blood pressure response was hypertensive. 4. Symptoms not suggestive of ischemia. 5. Electrocardiogram portion of the stress test was not suggestive of ischemia. Electronically Signed On 06-11-2024 22:30:43 BLOCK BOLTER MULE OPERATOR by SHONDA SANCHEZ [id number]
[2024-05-24 13:08] VITALS: BMI 24.0
--- NOTE | 2024-05-24 13:12 | USCV_ITS ---
Nancy James Age: 69 Gender: F : 1955 Exam Date: 05/24/2024 13:25 Ordering Phys: Shonda Sanchez MD ([email or web address]) Technologist: [place] [facility] [place]: chest pain/pressure Rhythm: Sinus Patient History: chest pain/pressure Cardiac Medications: beta blockers Medications in past 24 hours: Contrast: Stress Results Protocol: Tio Total dose(mL): Exercise Duration (min:sec): 6:31 METS: 10.2 Resting HR: 74 Resting BP: 170 / 59 Peak HR: 133 Peak BP: 204 / 91 Max Predicted HR: 153 87 % Max Predicted HR Target HR: 130 Double Product: [id number] Stress Summary: The patient's target heart rate was achieved The hemodynamic response to exercise was normal BP Response: Normal Reason for Termination: Maximal effort/unable to continue Cardiac Symptoms: None ECG Analysis Resting ECG: Stress ECG: Arrhythmia: MEASUREMENTS (Male/Female) Normal Values FINDINGS Baseline: Left ventricular ejection fraction normal, estimated ejection fraction 60%. There is no wall motion abnormality At peak exercise level: Augmentation the cavity was good, there was no new wall motion abnormality noted Recovery: No wall motion abnormality noted CONCLUSIONS Echocardiographic portion of the stress test is negative for ischemia and low probability for obstructive coronary artery disease. EKG segment will be documented separately. Shonda Sanchez MD (Electronically Signed) Final Date: 24 May 2024 16:01 S
== END 2024-05-24 13:01 | disposition home or self-care (01) ==
LOC: CDL 13:00
PROVIDERS: PCP Family Medicine; Visit Provider Internal Medicine Cardiovascular Disease
DX: R07.9 Chest pain, unspecified (principal); R93.1 Abnormal findings on diagnostic imaging of heart and coronary circulation
CPT/HCPCS: 93350